=== PATIENT | male | born 1985 | race Caucasian/White ===

== ENCOUNTER 2019-02-09 14:38 | Emergency (ER) | payer OTHER ==
[2019-02-09] MEDS ORDERED: HYDROcodone/Acetaminophen 5/325 mg Tablet ONE (14:54)
--- NOTE | 2019-02-09 15:17 | RAD ---
Left ankle 3 views HISTORY: Left ankle injury. FINDINGS: Ankle mortise and talar dome are intact. Prominent soft tissue swelling overlying the later al malleolus. No fractures are apparent. No significant fluid distention of the joint capsule visualized on the lateral view. IMPRESSION: Prominent lateral soft tissue swelling. No acute osseous abnormalities are demonstrated.
--- NOTE | 2019-02-09 15:25 | RAD ---
Left lower leg 2 views HISTORY: Leg injury. FINDINGS: Tibia and fibula are intact. Distal portions are included on the ankle exam. No acute fract ure or dislocation are apparent. IMPRESSION: No acute osseous abnormalities are demonstrated.
[2019-02-09] MEDS ORDERED: Adacel (T-DAP) 0.5 ML SYRINGE ONE (15:38)
== END 2019-02-09 15:50 | disposition home or self-care (01) ==
LOC: BURERS 14:38
DX: S93.412A Sprain of calcaneofibular ligament of left ankle, initial encounter (principal); F32.9 Major depressive disorder, single episode, unspecified; F41.9 Anxiety disorder, unspecified; W17.89XA Other fall from one level to another, initial encounter
CPT/HCPCS: 90471; 90715

== ENCOUNTER → 2025-03-25 | Emergency (ER) | payer BC ==
[~2025-03-25] MED LIST: Bacitracin 1 PK ONE; Lidocaine 1% (PF) 30 ML VIAL ONE; Lidocaine 1% PF 5 ML VIAL ONE
== END ==
LOC: BURERS 11:25
DX: S61.412A Laceration without foreign body of left hand, initial encounter (principal); W31.2XXA Contact with powered woodworking and forming machines, initial encounter; Z23 Encounter for immunization
CPT/HCPCS: 12002; 90471; 90715; J2003